=== PATIENT | female | born 1945 | race Two or more races ===

== ENCOUNTER → 2016-10-01 | Outpatient (CLI) | payer MEDICARE, MEDICAID ==
[~2016-10-01] MED LIST: CHL25 PO; DOCU250C21 PO; HYDR-3110 PO; LEVO50 PO; LOSA25TA21 PO; MECL-111 PO; METO25 PO; NITR.4 BU; POLY238P2 PO; POTA8CAP10 PO; SIMV-260 PO
== END | disposition home or self-care (01) ==
LOC: RADPV 11:40
PROVIDERS: ATTEND Orthopaedic Surgery
DX: M25.422 Effusion, left elbow (principal)

== ENCOUNTER → 2016-10-15 | Outpatient (CLI) | payer MEDICARE, MEDICAID | END | disposition home or self-care (01) | LOC: RADMN 10:52 | PROVIDERS: ATTEND Orthopaedic Surgery | DX: S52.122A Displaced fracture of head of left radius, initial encounter for closed fracture (principal); X58.XXXA Exposure to other specified factors, initial encounter; Y93.89 Activity, other specified; Y92.89 Other specified places as the place of occurrence of the external cause; Y99.8 Other external cause status | CPT/HCPCS: 73200 ==